=== PATIENT | male | born 1960 | race Caucasian/White ===

== ENCOUNTER 2016-12-04 20:13 | Emergency (ER) | payer OTHER ==
[~2016-12-04] VITALS: Ht 172.7 cm; Wt 115.2 kg
[~2016-12-04 20:13] MED LIST: CAPTOPRIL25 MG PO; METFORMIN HCL500 MG PO; PROVENTIL HFA6.7 GM INH
--- OUTSIDE RECORDS SUMMARY | 2016-12-04 21:50 | XMS ---
Demographics + + + | Address | [address] | | | [place] [address] | + + + | Preferred Language | Unknown | + + + | Marital Status | Unknown | + + + | Congregational Affiliation | Unknown | + + + | Race | Unknown | + + + | Ethnic Group | Unknown | + + + Author + + + | Author | [facility] | + + + | Organization | [facility] | + + + | Address | [address] | | | [place] [address] | + + + | Phone | | + + + Care Team Providers + + + + | Care Cigar Packer Name | Role | Phone | + + + + Unavailable | Unavailable | + + + + PROBLEMS + + + + + + + + | Type | Condition | ICD9-CM | [id number] | Onset | Condition | SNOMED | | | | Code | Code | Dates | Status | Code | + + + + + + + + | Problem | DM w/o | E11.9 | | | Active | [id number] | | | complicati | | | | | | | | on type II | | | | | | + + + + + + + + | Problem | Hypertensi | | I10 | | Active | [id number] | | | on | | | | | | + + + + + + + + | Assessment | URI (upper | | J06.9 | 23 August, | Active | [id number] | | | | | | 2016 | | | | | respirator | | | | | | | | y | | | | | | | | infection) | | | | | | + + + + + + + + ALLERGIES + + + + +---------+ | Substance | Reaction | Event Type | Date | Status | + + + + +---------+ | Tyler. | Unknown | Non Drug | August, | Unknown | | | | Allergy | | | + + + + +---------+ SOCIAL HISTORY No smoking Hx information available PLAN OF CARE VITAL SIGNS + + + + | Height | 67.75 in | 2016-08-23 | + + + + | Weight | 261.0 lbs | 2016-08-23 | + + + + | BMI | 39.97 kg/m2 | 2016-08-23 | + + + + | Temperature | 97.8 degrees Fahrenheit | 2016-08-23 | + + + + | Heart Rate | 88 /min | 2016-08-23 | + + + + | Blood pressure systolic | 163 mm Hg | 2016-08-23 | + + + + | Blood pressure diastolic | 95 mm Hg | 2016-08-23 | + + + + MEDICATIONS + + + + + + + +--------+ | Medicati | Instruct | Dosage | Frequenc | Start | End Date | Duration | Status | | on | ions | | y | Date | | | | + + + + + + + +--------+ | Albutero | Inhalati | 2 puffs | | | | 30 days | Active | | l | on every | | | | | | | | Sulfate | 6 hrs | | | | | | | | HFA 108 | PRN | | | | | | | | (90 | | | | | | | | | Base) | | | | | | | | | MCG/ACT | | | | | | | | + + + + + + + +--------+ | Metformi | Orally | 1 tab | 12h | 21 Michael, | | 30 days | Active | | n HCl | BID | | | 2013 | | | | | 500 mg | | | | | | | | + + + + + + + +--------+ | Captopri | Orally | 1 tablet | 12h | | | 30 days | Active | | l 25 MG | Twice a | | | | | | | | | day | | | | | | | + + + + + + + +--------+ | Vitamin | | as | | Sep, | | | Active | | D 1999 | | directed | | 2015 | | | | | UNIT | | | | | | | | + + + + + + + +--------+ RESULTS No Results PROCEDURES + + + + + | Procedure | Date Ordered | Related Diagnosis | Body Site | + + + + + | Est Level III | August 23, 2016 | | | | Intermediate | | | | + + + + + | DSCHRG MED/CURRENT | August 23, 2016 | | | | MED MERGE | | | | + + + + + | DOC MEDS VERIFIED | August 23, 2016 | | | | W/PT OR RE | | | | + + + + + IMMUNIZATIONS No Known Immunizations"
== END 2016-12-04 23:02 | disposition home or self-care (01) ==
LOC: ED 20:13
DX: R31.9 Hematuria, unspecified (principal); I10 Essential (primary) hypertension; E11.9 Type 2 diabetes mellitus without complications; Z87.891 Personal history of nicotine dependence; Z90.49 Acquired absence of other specified parts of digestive tract; Z88.5 Allergy status to narcotic agent; Z79.84 Long term (current) use of oral hypoglycemic drugs; Z79.899 Other long term (current) drug therapy
CPT/HCPCS: 74178; 80053; 81001; 85025; 85610; 85730; 99284; Q9967

== ENCOUNTER → 2019-02-20 | Day surgery (SDC) | payer BC ==
--- NOTE | 2019-02-20 08:27 | NUR ---
INTO [facility] REVIEWED CONSENT. OR NURSE SETTING UP FOR PROCEDURE. [id number] DR AG IN ROOM.
--- NOTE | 2019-02-20 10:33 | NUR ---
DR AG COMPLETED PROCEDURE SEE DICTATION. HAS INSTRUCTED PT. NO QUESTIONS. DCD AMB. PT STATES HES GOING TO WIFES OFFICE IN THIS BUILDING. DENIES ANY DIZZINESS PAIN OR ANYTHING FROM PROCEDURE.
--- NOTE | 2019-02-21 13:10 | OR ---
[facility] [address], [place] [address] Signed DATE OF OPERATION: 02/20/2019 SURGEON: Ute Ag MD PREOPERATIVE DIAGNOSES: 1. Known right lower pole parathyroid adenoma. 2. Multiple thyroid nodules including 11 mm right thyroid nodule. POSTOPERATIVE DIAGNOSES: 1. Known right lower pole parathyroid adenoma. 2. Multiple thyroid nodules including 11 mm right thyroid nodule. PROCEDURE: Ultrasound-guided fine-needle aspiration biopsy, right thyroid nodule. ANESTHESIA: 1% local (lidocaine). INDICATION: A 58-year-old white man with hypercalcemia and evaluation by Dr. Andino, his primary provider, confirming a right parathyroid adenoma. Plans were made for excision. An ultrasound was performed, which shows a likely lesion, but also shows thyroid nodules, both left and right side. There is at least 11 mm mid pole right thyroid nodule, for which, I have recommended fine-needle aspiration biopsy. Risks of bleeding, infection, and failure of diagnosis were reviewed with him. He understands and wished to proceed. FINDINGS: Ultrasound evaluation of the thyroid showed small nodules in the left lobe and in the right lobe. Dominant nodule in the right lobe was interrogated and under ultrasound guidance, fine-needle aspiration biopsy undertaken at three separate occasions. There were no complications. DESCRIPTION OF PROCEDURE: In the Day Surgery area, the patient was placed in a supine position with a pillow beneath the shoulders with head extension. Anterior neck was evaluated with ultrasound confirming the texture of the thyroid and evaluating surrounding structures. It did appear that an adenoma could be identified posterior to the right thyroid lobe corresponding to probable parathyroid adenoma. In the interpolar region on the right side was a nodule that was mixed in its consistency. The neck was then prepared with a chlorhexidine solution and draped sterilely. 1% lidocaine injected locally. Sterile Electronically Signed By: UTE AG MD 02/21/19 1310 PATIENT NAME: SOHA THOMAS OPERATIVE REPORT DATE OF : 64 REPORT #: [id number] PHYSICIAN: UTE AG MD PCP: AMIE ANDINO MD REPORT IS CONFIDENTIAL AND NOT TO BE RELEASED WITHOUT AUTHORIZATION [facility] [address], [place] [address] Signed sheet was placed over the probe and under ultrasonographic guidance, needle-guided to the nodule in question, multiple passes taken. Three separate occasions and three separate syringe systems were used with 3 separate containers. There was no untoward bleeding. Further evaluation showed no other sign of problem. A Band-Aid was applied. MD PAULA He/WEROL /[id number] cc: Dr. Andino Copies: ~ Electronically Signed By: UTE AG MD 02/21/19 1310 PATIENT NAME: SOHA THOMAS OPERATIVE REPORT DATE OF : 64 REPORT #: [id number] PHYSICIAN: UTE AG MD PCP: AMIE ANDINO MD REPORT IS CONFIDENTIAL AND NOT TO BE RELEASED WITHOUT AUTHORIZATION
== END | disposition home or self-care (01) ==
LOC: OPS 08:12 → DS 09:00
PROC: 0GBH3ZX Excision of Right Thyroid Gland Lobe, Percutaneous Approach, Diagnostic (ICD-10-PCS; principal; 2019-02-20)
PROC: BG44ZZZ Ultrasonography of Thyroid Gland (ICD-10-PCS; 2019-02-20)
DX: E04.2 Nontoxic multinodular goiter (principal); D35.1 Benign neoplasm of parathyroid gland; E66.01 Morbid (severe) obesity due to excess calories; E11.9 Type 2 diabetes mellitus without complications; I10 Essential (primary) hypertension; J45.909 Unspecified asthma, uncomplicated; F32.9 Major depressive disorder, single episode, unspecified; K21.9 Gastro-esophageal reflux disease without esophagitis; Z88.5 Allergy status to narcotic agent; Z68.38 Body mass index [BMI] 38.0-38.9, adult; Z87.891 Personal history of nicotine dependence
CPT/HCPCS: 10021

== ENCOUNTER 2019-09-16 16:15 | Emergency (ER) | payer BC ==
[~2019-09-16] VITALS: Ht 172.7 cm; Wt 115.7 kg
--- OUTSIDE RECORDS SUMMARY | ~2019-09-16 | XMS | Encounter Summary ---
Demographics + + + | Address | [address] | | | [place] [address] | + + + | Home Phone | | + + + | Preferred Language | Unknown | + + + | Marital Status | | + + + | Hoahaoism Affiliation | Unknown | + + + | Race | Unknown | + + + | Ethnic Group | Unknown | + + + Author + + + | Author | [facility] | | | and [place] | + + + | Organization | [facility] | | | and [place] | + + + | Address | Unknown | + + + | Phone | Unavailable | + + + Support + + +---------+ + | Name | Relationship | Address | Phone | + + +---------+ + | Latha Urban | ECON | Unknown | | + + +---------+ + Care Team Providers + +------+ + | Care Inspector And Tester Name | Role | Phone | + +------+ + | Renaldo Calzada MD | PCP | | + +------+ + Reason for Visit + + + | Reason | Comments | + + + | Follow-up | 6 week / zoom | + + + Encounter Details +--------+ + + + + | Date | Type | Department | Care Team | Description | +--------+ + + + + | 07/29/ | Virtual | [facility] | Esthela Zavala DO | Palpitations | | 2019 | Office | CARDIOLOGY PIA | [address] | (Primary Dx) | | | Visit | [address] | [place], [place] | | | | | [address] [place], [place] | [address] | | | | | [address] | | | | | | [phone] | | | +--------+ + + + + Social History + +-------+ +--------+------+ | Tobacco Use | Types | Packs/Day | Years | Date | | | | | Used | | + +-------+ +--------+------+ | Never Smoker | | | | | + +-------+ +--------+------+ + +---+---+---+ | Smokeless Tobacco: | | | | | Former User | | | | + +---+---+---+ + + +---------+ + | Alcohol Use | Drinks/Week | oz/Week | Comments | + + +---------+ + | Yes | | | JUST SOCIALLY | + + +---------+ + + + + | Sex Assigned at | Date Recorded | | | | + + + | Not on file | | + + + + + + + | Job Start Date | Occupation | Industry | + + + + | Not on file | Not on file | Not on file | + + + + + + + + | Travel History | Travel Start | Travel End | + + + + + + | No recent travel history available. | + + documented as of this encounter Last Filed Vital Signs + + + + + | Vital Sign | Reading | Time Taken | Comments | + + + + + | Blood Pressure | - | - | | + + + + + | Pulse | - | - | | + + + + + | Temperature | - | - | | + + + + + | Respiratory Rate | - | - | | + + + + + | Oxygen Saturation | - | - | | + + + + + | Inhaled Oxygen | - | - | | | Concentration | | | | + + + + + | Weight | 117.9 kg (260 lb) | 07/30/2019 10:52 AM | | | | | PDT | | + + + + + | Height | 172.7 cm (5' 8") | 07/30/2019 10:52 AM | | | | | PDT | | + + + + + | Body Mass Index | 39.53 | 07/30/2019 10:52 AM | | | | | PDT | | + + + + + documented in this encounter Progress Notes Esthela Zavala DO - 07/30/2019 11:40 AM PDT This exam was initially conducted via a secure 256-bit AES encrypted bidirectional video [employer]ong[employer]. Service was provided [id number] with the patient via interactive videoconferencing Video start time 11:50 Video end time 12:05 Total time (in minutes) including non [id number]-[id number] time (reviewing records, documentation, etc.) 15-24 minutes ([id number]) You have chosen to receive care through the use of telemedicine. Telemedicine enables [facility] care providers at different locations to provide safe, effective and convenient care throu gh the use of technology. As with any health care service, there are risks associated with t he use of telemedicine, including equipment failure, poor image resolution and information s ecurity issues. Do you understand the risks and benefits of telemedicine as I have explained them to you? " Yes" Have your questions regarding telemedicine been answered? "Yes" Patient is currently at home Do you consent to the use of telemedicine in your medical care today? Yes. Last question, I need to confirm where are you physically located right now? Answer: Patient confirms they are located in a state where IEsthela DO is licensed. No follow-ups on file. [facility] Cardiology Cardiology Follow Up Note Reason for Consultation: palpitations Requesting Physician: History Obtained From: patient HISTORY OF PRESENT ILLNESS: The patient is a 58-year-old male with a past medical history of hypertension and diabetes, who presents to the Cardiology office for initial consult regarding palpitations. 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 He reports that he has been having issues recently with his calcium numbers. Over the past few years, he reports that he has had spells of fluttering in his chest and in his stomach . This was followed by a pressure-like sensation in his head and face. His face will turn red whenever this occurs and he gets a tingly feeling over his head and upper extremities. It lasts about a minute and stops spontaneously. It used to occur every couple of months, b ut recently he has been noticing it at least once a week, last Sunday he had 5 episodes in 1 day, which is unusual for him. He has also been having issues with stomach pain and is sc heduled to have a CT scan tomorrow. He has not checked his blood pressure during one of the se episodes. He does not traditionally have a history of uncontrolled hypertension. A 24-h our urine metanephrine was done, which ruled out pheochromocytoma. After these events occur , he feels "wiped out." He denies any specific triggers. He denies any recent chest pains or shortness of breath. He denies any lower extremity swelling, orthopnea, PND. Interim History I last saw the patient on 06/18/2019. At that time, we ordered an ambulatory monitor, josephine serna he had done 07/02/2019. On the monitor, he was in normal sinus rhythm. There were 2 brie f episodes of SVT, which did not correlate with any symptoms. He did report episodes of pal pitations and unspecified symptom which correlated with normal sinus rhythm. Since we last saw each other, he continues to have episodes as described before. His parathyroid surgery had to be pushed back due to the COVID pandemic. He did have a CT scan of his abdomen, I kareem torres requested this from [facility]. He has no new complaints today. Review of Systems Constitutional: Negative for fatigue. HENT: Negative for nosebleeds. Eyes: Negative for visual disturbance. Respiratory: Negative for cough and shortness of breath. Cardiovascular: see HPI Gastrointestinal: Negative for nausea, vomiting, abdominal pain and blood in stool. Genitourinary: Negative for hematuria or dysuria. Musculoskeletal: Negative for myalgias, back pain and arthralgias. Skin: Negative for color change. Neurological: Negative for dizziness, syncope and numbness. Hematological: Does not bruise/bleed easily. Psychiatric/Behavioral: The patient is not nervous/anxious. PAST MEDICAL & SURGICAL HISTORY Past Medical History: Diagnosis Date Diabetes mellitus (HCC) Heart palpitations Hyperlipidemia Hypertension History reviewed. No pertinent surgical history. MEDICATIONS Home Medications Outpatient Encounter Medications as of 07/30/2019 Medication Sig Dispense Refill albuterol (PROVENTIL) 90 mcg/puff inhaler (ED prepack) allopurinol (ZYLOPRIM) 100 mg tablet Take 100 mg by mouth Daily. amLODIPine (NORVASC) 10 MG tablet Take 10 mg by mouth nightly. JANUVIA 100 MG tablet Take 100 mg by mouth Daily. lisinopril (PRINIVIL,ZESTRIL) 40 MG tablet Take 40 mg by mouth Daily. metFORMIN (GLUCOPHAGE) 1000 MG tablet Take 1,000 mg by mouth 2 times daily. No facility-administered encounter medications on file as of 07/30/2019. Allergies Allergies Allergen Reactions Morphine Other (See Comments) CAN'T TOLERATE IT. FAMILY HISTORY Family History Problem Relation Age of Onset Heart surgery Mother High cholesterol Mother Heart surgery Father High cholesterol Father SOCIAL HISTORY Social History Socioeconomic History Marital status: Spouse name: Not on file Number of children: Not on file Years of education: Not on file Highest education level: Not on file Occupational History Not on file Social Needs Financial resource strain: Not on file Food insecurity: Worry: Not on file Inability: Not on file Transportation needs: Medical: Not on file Non-medical: Not on file Tobacco Use Smoking status: Never Smoker Smokeless tobacco: Former User Substance and Sexual Activity Alcohol use: Yes Comment: JUST SOCIALLY Drug use: Never Sexual activity: Not on file Lifestyle Physical activity: Days per week: Not on file Minutes per session: Not on file Stress: Not on file Relationships Social connections: Talks on phone: Not on file Gets together: Not on file Attends advent service: Not on file Active member of club or organization: Not on file Attends meetings of clubs or organizations: Not on file Relationship status: Not on file Intimate partner violence: Fear of current or ex partner: Not on file Emotionally abused: Not on file Physically abused: Not on file Forced sexual activity: Not on file Other Topics Concern Not on file Social History Narrative Not on file PHYSICAL EXAM Vital Signs: Ht 1.727 m (5' 8") | Wt 117.9 kg (260 lb) | BMI 39.53 kg/m From 06/18/19 Physical Exam GENERAL: Well developed, well nourished, in no distress. Appears approximately stated age . HEENT: Normocephalic, atraumatic. EYES: PERRL, sclerae anicteric, no xanthelsasmas NECK: No JVD, lymphadenopathy, thyromegaly, bruits. Carotid pulses are 2+ bilaterally LUNGS: Clear bilaterally, with no rales, rhonchi or wheezing noted, respirations unlabored HEART: Nondisplaced PMI, regular rate and rhythm, S1, S2 normal. No murmurs, rubs or gall ops noted. ABDOMEN: Soft, nontender, no organomegaly, masses or bruits. Bowel sounds are normal in a ll 4 quadrants. EXTREMITIES: No edema. Radial pulses 2+ bilaterally. DP and PT pulses are 2+ bilaterally. SKIN: Warm and dry, capillary refill is normal, no lesions. NEUROLOGIC: Awake, alert and oriented x 3. No focal motor deficits. PSYCHIATRIC: Appropriate, affect appears normal DATA No results found for: WBC, HGB, HCT, PLTNo results found for: INR, PTT No results found for : NA, K, CL, CO2, BUN, CREA, GLUCOSE, MG, AST, ALT, DIGOXIN, BNP, TSHNo results found for: C HOL, TRIG, HDL, LDL, TSH EK06/18/2019 normal sinus rhythm 78 bpm, incomplete right bundle branch block. Last Echo: 05/27/18 CONCLUSIONS 1. Overall left ventricular systolic function is normal with an EF between 65 - 70 %. 2. There is mild concentric left ventricular hypertrophy. 3. The right ventricle is normal in size and function. 4. No significant valvular abnormali ties are noted. Last stress test: Last cath: Carotid US: AAA screening: Lower extremity US: OTHERS: 07/02/19 Procedure: Continuous ambulatory ECG for the duration of 12 days and 20 hours. During this recording, the underlying rhythm is sinus the lowest heart rate was 62 BPM, the highest hea rt rate 154 BPM, averaging 81 BPM. During this recording interval, there were 2 episodes of supraventricular tachycardia the longest and fastest of which was 6 beats at 163 bpm. Ther e were no episodes of ventricular tachycardia. No AV conduction abnormality observed. The h eart rate trends did demonstrate a normal circadian pattern. In the patient's diary, episod es of palpitations and unspecified symptom correlated with sinus rhythm. ASSESSMENT & PLAN 1. Palpitations 2. 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 HTN 4. DM II -Patient is a 58-year-old male who presents to the cardiology office for follow up regardin g palpitations. His palpitations are episodic and associated with facial flushing and turnin g red. He does not have a history of uncontrolled hypertension. Pheochromocytoma has been ruled out with a 24-hour urine metanephrine. He had a recent echocardiogram which demonstra al normal left ventricular function with mild concentric LVH, normal right ventricular func tion. He underwent a recent 2-week ambulatory monitor which was negative for any clinically significant arrhythmias. He did report some mild episodes during the monitoring. If sympt oms persist, would consider ambulatory referral to endocrinology to rule out other endocrine secreting tumors, specifically MEN syndromes. - Follow up with cardiology as needed. Thank you for allowing me to participate in the care of this patient. Primary Care Physician: MD Esthela Henley DO 07/30/2019 documented in this enco unter Plan of Treatment Not on filedocumented as of this encounter Visit Diagnoses + + | Diagnosis | + + | Palpitations - Primary | + + documented in this encounter
--- OUTSIDE RECORDS SUMMARY | ~2019-09-16 | XMS | Encounter Summary ---
Demographics + + + | Address | [address] | | | [place] [address] | + + + | Home Phone | | + + + | Preferred Language | Unknown | + + + | Marital Status | Unmarried Domestic Partner | + + + | Holiness Affiliation | Unknown | + + + | Race | White | + + + | Ethnic Group | Not or | + + + Author + + + | Author | [facility] | + + + | Organization | [facility] | + + + | Address | Unknown | + + + | Phone | Unavailable | + + + Support + + +---------+ + | Name | Relationship | Address | Phone | + + +---------+ + | Michael Preston | ECON | Unknown | | + + +---------+ + Care Team Providers + +------+ + | Care Managed Services Consultant Name | Role | Phone | + +------+ + PCP | Unavailable | + +------+ + Encounter Details +--------+ + + + + | Date | Type | Department | Care Team | Description | +--------+ + + + + | 07/29/ | Abstract | | Marie Raya, | | | 2019 | | Otolaryngology/Zeenat | [address] [facility] | | | | | [facility] | [facility] | | | | | [facility] [address] | [facility] [place] | | | | | [place] Mailcode: | [address] | | | | | [facility] | [phone] | | | | | and [address], | | | | | | [address] | | | | | | [place], [place] | | | | | | [address] | | | | | | [phone] | | | +--------+ + + + + Social History + +-------+ +--------+------+ | Tobacco Use | Types | Packs/Day | Years | Date | | | | | Used | | + +-------+ +--------+------+ | Never Assessed | | | | | + +-------+ +--------+------+ + + + | Sex Assigned at [...] + + documented as of this encounter Plan of Treatment Not on filedocumented as of this encounter Visit Diagnoses Not on filedocumented in this encounter"
--- OUTSIDE RECORDS SUMMARY | ~2019-09-16 | XMS | Clinical Summary ---
Demographics + + + | Address | [address] | | | [place] [address] | + + + | Home Phone | | + + + | Preferred Language | Unknown | + + + | Marital Status | | + + + | Yazdanism Affiliation | Unknown | + + + | Race | Unknown | + + + | Ethnic Group | Unknown | + + + Author + + + | Author | [facility] | | | and [place] | + + + | Organization | [facility] | | | and [place] | + + + | Address | Unknown | + + + | Phone | Unavailable | + + + Support + + +---------+ + | Name | Relationship | Address | Phone | + + +---------+ + | Latha Brockarlane | ECON | Unknown | | + + +---------+ + Care Team Providers + +------+ + | Care Solderer Assembler Name | Role | Phone | + +------+ + | Renaldo Calzada MD | PCP | | + +------+ + Allergies + + + + + + | Active Allergy | Reactions | Severity | Noted | Comments | | | | | Date | | + + + + + + | Morphine | Other (See Comments) | Medium | 06/18/19 | CAN'T TOLERATE IT. | | | | | 20 | | + + + + + + Medications + + + +---------+------+------+-------+ | Medication | Sig | Dispensed | Refills | Star | End | Statu | | | | | | t | Date | s | | | | | | Date | | | + + + +---------+------+------+-------+ | metFORMIN | Take 1,000 mg by | | 0 | 01/2 | | Activ | | (GLUCOPHAGE) 1000 MG | mouth 2 times daily. | | | 9/20 | | e | | tablet | | | | 20 | | | + + + +---------+------+------+-------+ | amLODIPine | Take 10 mg by mouth | | 0 | 01/2 | | Activ | | (NORVASC) 10 MG | nightly. | | | 9/20 | | e | | tablet | | | | 20 | | | + + + +---------+------+------+-------+ | lisinopril | Take 40 mg by mouth | | 0 | 01/2 | | Activ | | (PRINIVIL,ZESTRIL) | Daily. | | | 12/27 | | e | | 40 MG tablet | | | | 20 | | | + + + +---------+------+------+-------+ | albuterol | | | 0 | 11/0 | | Activ | | (PROVENTIL) 90 | | | | 8/20 | | e | | mcg/puff inhaler (ED | | | | 19 | | | | prepack) | | | | | | | + + + +---------+------+------+-------+ | allopurinol | Take 100 mg by mouth | | 0 | 03/2 | | Activ | | (ZYLOPRIM) 100 mg | Daily. | | | 3/20 | | e | | tablet | | | | 20 | | | + + + +---------+------+------+-------+ | JANUVIA 100 MG | Take 100 mg by mouth | | 0 | | | Activ | | tablet | Daily. | | | 08/26 | | e | | | | | | 20 | | | + + + +---------+------+------+-------+ Active Problems Not on file Encounters +--------+ + + + + | Date | Type | Specialty | Care Team | Description | +--------+ + + + + | 07/29/ | Virtual | Cardiology | Esthela Zavala DO | Palpitations | | 2019 | Office | | | (Primary Dx) | | | Visit | | | | +--------+ + + + + | 07/01/ | Procedure | Cardiology | Esthela Zavala DO | Heart palpitations | | 2019 | visit | | | | +--------+ + + + + | 07/01/ | Documentati | Cardiology | Jaki Wilson, | Other (end of study) | | 2019 | on | | Technologist | | +--------+ + + + + | 06/17/ | Office | Cardiology | Esthela Zavala DO | Heart palpitations | | 2019 | Visit | | | (Primary Dx) | +--------+ + + + + from Last 3 Months Family History + + +------+ + | Medical History | Relation | Name | Comments | + + +------+ + | Heart surgery | Father | | | + + +------+ + | High cholesterol | Father | | | + + +------+ + | Heart surgery | Mother | | | + + +------+ + | High cholesterol | Mother | | | + + +------+ + + +------+--------+ + | Relation | Name | Status | Comments | + +------+--------+ + | Father | | Alive | | + +------+--------+ + | Mother | | Alive | | + +------+--------+ + Social History + +-------+ +--------+------+ | [...] recent travel history available. | + + Last Filed Vital Signs + + + + + | Vital Sign | Reading | Time Taken | Comments | + + + + + | Blood Pressure | 130/72 | 06/18/2019 11:10 AM | | | | | PDT | | + + + + + | Pulse | 76 | 06/18/2019 11:10 AM | | | | | PDT | | + + + + + | Temperature | - | - | | + + + + + | Respiratory Rate | - | - | | + + + + + | Oxygen Saturation | 96% | 06/18/2019 11:10 AM | | | | | PDT [...] | | + + + + + Plan of Treatment + + + + + | Health Maintenance | Due Date | Last Done | Comments | + + + + + | Hepatitis C | | | | | Screening | 3 | | | + + + + + | Vaccine: | | | | | Dtap/Tdap/Td (1 - | 4 | | | | Tdap) | | | | + + + + + | Colorectal Cancer | | | | | Screening | 3 | | | | (Colonoscopy) | | | | + + + + + | Vaccine: Zoster (1 | | | | | of 2) | 3 | | | + + + + + | Vaccine: Influenza | | 01/07/2018 | | | (Season Ended) | 0 | | | + + + + + Procedures + +--------+ + + + | Procedure Name | Priori | Date/Time | Associated Diagnosis | Comments | | | ty | | | | + +--------+ + + + | IMAGING REPORT - | | 06/19/2019 | | Results for this | | EXTERNAL SCAN | | 12:00 AM | | procedure are in the | | | | PDT | | results section. | + +--------+ + + + | ECG 12 LEAD | Routin | 06/18/2019 | Heart palpitations | Results for this | | | e | 11:16 AM | | procedure are in the | | | | PDT | | results section. | + +--------+ + + + from Last 3 Months Results IMAGING REPORT - EXTERNAL SCAN (06/19/2019 12:00 AM PDT) + + + | Narrative | Performed At | + + + | Ordered by an | | | unspecified provider. | | + + + ECG 12 lead (06/18/2019 11:16 AM PDT) + + + + + + | Component | Value | Ref Range | Performed | Pathologist | | | | | At | Signature | + + + + + + | VENTRICULAR | 78 | BPM | [facility] | | | RATE EKG | | | | | + + + + + + | ATRIAL RATE | 78 | BPM | [facility] | | + + + + + + | P-R | 140 | ms | [facility] | | | INTERVAL | | | | | + + + + + + | QRS | 102 | ms | [facility] | | | DURATION | | | | | + + + + + + | Q-T | 344 | ms | [facility] | | | INTERVAL | | | | | + + + + + + | Q-T | 392 | ms | [facility] | | | INTERVAL | | | | | | (CORRECTED) | | | | | + + + + + + | P WAVE AXIS | 8 | degrees | [facility] | | + + + + + + | QRS AXIS | 24 | degrees | [facility] | | + + + + + + | T AXIS | 15 | degrees | [facility] | | + + + + + + | INTERPRETAT | Normal sinus | | [facility] | | | ION TEXT | rhythmIncomplete right | | | | | | bundle branch | | | | | | blockPossible Inferior | | | | | | infarct , age | | | | | | undeterminedAbnormal | | | | | | ECGNo previous ECGs | | | | | | availableConfirmed by | | | | | | ESTHELA ZAVALA MD ([id number]) | | | | | | on 06/23/2019 2:03:44 PM | | | | + + + + + + + + | Specimen | + + | | + + + + + | Narrative | Performed At | + + + | | | + + + + +---------+ + + | Performing | Address | City/State/Zipcode | Phone Number | | Organization | | | | + +---------+ + + | [facility] | | | | + +---------+ + + from Last 3 Months Insurance +-------+--------+ +--------+-------+---------+------+ | Payer | Benefi | Subscriber | Effect | Phone | Address | Type | | | t Plan | ID | juan | | | | | | / | | Dates | | | | | | Group | | | | | | +-------+--------+ +--------+-------+---------+------+ | BCBS | BCBS | [id number] | | | | PPO | | | OOS | 2 | 019-Pr | | | | | | PPO | | esent | | | | +-------+--------+ +--------+-------+---------+------+ + +--------+ +--------+ + + | Guarantor Name | Accoun | Relation to | Date | Phone | Billing Address | | | t Type | Patient | of | | | | | | | | | | + +--------+ +--------+ + + | Adriel Lewis | Person | Self [birth year] | [address] | | | al/Fam | | 1961 | [phone] | [place], [place] | | | [place] | | | [address] ([place]) | [address] | + +--------+ +--------+ + + Advance Directives + + + + + | Type | Date Recorded | Patient | Explanation | | | | Storekeeper Engineering | | + + + + + | Power of | | | | | Supervisor Backfilling | | | | + + + + + | Advance | | | | | Directive | | | | + + + + +
--- OUTSIDE RECORDS SUMMARY | ~2019-09-16 | XMS | Encounter Summary ---
Demographics + + + | Address | [address] | | | [place] [address] | + + + | Home Phone | | + + + | Preferred Language | Unknown | + + + | Marital Status | Unmarried Domestic Partner | + + + | Judaism Affiliation | Unknown | + + + | Race | White | + + + | Ethnic Group | Not or | + + + Author + + + | Author | [facility] [place] [facility] | + + + | Organization | [facility] | + + + | Address | Unknown | + + + | Phone | Unavailable | + + + Support + + +---------+ + | Name | Relationship | Address | Phone | + + +---------+ + | Michael Preston | ECON | Unknown | | + + +---------+ + Care Team Providers + +------+ + | Care Earth Sciences Professor Name | Role | Phone | + +------+ + | Renaldo Calzada MD | PCP | | + +------+ + Encounter Details +--------+ + + + + | Date | Type | Department | Care Team | Description | +--------+ + + + + | 10/23/ | Documentati | | Marie Raya, | | | 2019 | on | Otolaryngology/Zeenat | [address] [facility] | | | | | gology Services at | [facility] | | | | | [address] | [place], [place] | | | | | [place] Mailcode: | [phone] | | | | | [facility] | [phone] | | | | | and Healing, | | | | | | [address] | | | | | | [place], [place] | | | | | | [address] | | | | | | [phone] | | | +--------+ + + + [...]
--- OUTSIDE RECORDS SUMMARY | ~2019-09-16 | XMS | Encounter Summary ---
Demographics + + + | Address | [address] | | | [place] [address] | + + + | Home Phone | | + + + | Preferred Language | Unknown | + + + | Marital Status | Unmarried Domestic Partner | + + + | Presybeterian Affiliation | Unknown | + + + | Race | White | + + + | Ethnic Group | Not or | + + + Author + + + | Author | [facility] [place] [facility] | + + + | Organization | [facility] | + + + | Address | Unknown | + + + | Phone | Unavailable | + + + Support + + +---------+ + | Name | Relationship | Address | Phone | + + +---------+ + | Michael Preston | ECON | Unknown | | + + +---------+ + Care Team Providers + +------+ + | Care Bench Repair Technician Name | Role | Phone | + +------+ + PCP | Unavailable | + +------+ + Encounter Details +--------+ + + + + | Date | Type | Department | Care Team | Description | +--------+ + + + + | 07/29/ | Abstract | | Marie Raya, | | | 2019 | | Otolaryngology/Zeenat | [address] [facility] | | | | | [facility] | [facility] | | | | | [address] | [facility] [place] | | | | | [place] Mailcode: | [address] | | | | | [facility] | [phone] | | | | | and [address], | | | | | | [address] | | | | | | [place], [place] | | | | | | [address] | | | | | | [phone] | | | +--------+ + + + [...]
--- OUTSIDE RECORDS SUMMARY | ~2019-09-16 | XMS | Clinical Summary ---
Demographics + + + | Address | [address] | | | [place] [address] | + + + | Home Phone [...] Author + + + | Author | NON REVENUE LOCATIONS | + + + | Organization | NON REVENUE LOCATIONS | + + + | Address | Unknown | + + + | Phone | Unavailable | + + + Support + + +---------+ + | Name | Relationship | Address | Phone | + + +---------+ + | Michael Preston | ECON | Unknown | | + + +---------+ + Care Team Providers + +------+ + | Care Teletypesetter Monitor Name | Role | Phone | + +------+ + | Renaldo Calzada MD | PCP | | + +------+ + Source Comments GUERRERO is fully live on both [facility] and [facility] InPatient.[facility] Allergies Not on File Medications Not on file Active Problems Not on file Social History + +-------+ +--------+------+ | Tobacco [...] | + + Last Filed Vital Signs Not on file Plan of Treatment + + + + + | Health Maintenance | Due Date | Last Done | Comments | + + + + + | Influenza (Flu) | | | | | vaccination (#1) | 9 | | | + + + + + | Pneumococcal | Aged Out | | No longer eligible | | vaccination | | | based on patient's | | | | | age to complete this | | | | | topic | + + + + + Results Not on filefrom Last 3 Months Insurance +-------+--------+ +--------+ + +------+ | Payer | Benefi | Subscriber | Effect | Phone | Address | Type | | | t Plan | ID | juan | | | | | | / | | Dates | | | | | | Group | | | | | | +-------+--------+ +--------+ + +------+ | MODA | MODA | [phone] | 06/08/19 | [phone] | [address] | PPO | | | [place] | | [address] | [id number] | | | | [place] | | sent | | [place], | | | | | | | | [place] [address] | | +-------+--------+ +--------+ + +------+ + +--------+ +--------+ + + | Guarantor Name | Accoun | Relation to | Date | Phone | Billing Address | | | t Type | Patient | of | | | | | | | | | | + +--------+ +--------+ + + | Adriel Lewis | Person | Self | [birth year] | [address] | | | al/Fam | | 1961 | [phone] | [place] [address] | | | [place] | | | 5 (Home) | | + +--------+ +--------+ + +"
--- OUTSIDE RECORDS SUMMARY | ~2019-09-16 | XMS | Encounter Summary ---
Demographics + + + | Address | [address] | | | [place] [address] | + + + | Home Phone | | + + + | Preferred Language | Unknown | + + + | Marital Status | Unmarried Domestic Partner | + + + | Shinto Affiliation | Unknown | + + + | Race | White | + + + | Ethnic Group | Not or | + + + Author + + + | Author | [place] [facility] | + + + | Organization | [facility] | + + + | Address | Unknown | + + + | Phone | Unavailable | + + + Support + + +---------+ + | Name | Relationship | Address | Phone | + + +---------+ + | Michael Preston | ECON | Unknown | | + + +---------+ + Care Team Providers + +------+ + | Care Carpet Installer Name | Role | Phone | + +------+ + | Renaldo Calzada MD | PCP | | + +------+ + Encounter Details +--------+ + + + + | Date | Type | Department | Care Team | Description | +--------+ + + + + | 10/23/ | Documentati | | Marie Raya, | | | 2019 | on | Otolaryngology/Zeenat | [address] [facility] | | | | | gology Services at | [facility] | | | | | [address] | [place], [place] | | | | | [place] Mailcode: | [phone] | | | | | [facility] | [phone] | | | | | and Healing, | | | | | | [address] | | | | | | [place], [place] | | | | | | [address] | | | | | | [phone] | | | +--------+ + + + [...]
--- OUTSIDE RECORDS SUMMARY | ~2019-09-16 | XMS | Encounter Summary ---
Demographics + + + | Address | [address] | | | [place] [address] | + + + | Home Phone | | + + + | Preferred Language | Unknown | + + + | Marital Status | | + + + | Islam Affiliation | Unknown | + + + | Race | Unknown | + + + | Ethnic Group | Unknown | + + + Author + + + | Author | [facility] | | | and [place] | + + + | Organization | [facility] | | | [...] Team Providers + +------+ + | Care Lobsterman Name | Role | Phone | + +------+ + | Renaldo Calzada MD | PCP | | + +------+ + Reason for Visit + + + | Reason | Comments | + + + | New Patient | new patient | + + + Evaluate & Treat (Routine) +--------+--------+ + + + + | Status | Reason | Specialty | Diagnoses / | Referred By | Referred To | | | | | Procedures | Contact | Contact | +--------+--------+ + + + + | Closed | | Cardiology | Diagnoses | Zheng, | Sally, | | | | | | Renaldo Lopez MD | DO Esthela | | | | | Palpitations | [address] | [address] | | | | | Procedures | [address] | [address] [place] | | | | | CONSULT | [place], | [place], [place] | | | | | | [place] [address] | [address] Phone: | | | | | | Phone: | [phone] | | | | | | [phone] | Fax: | | | | | | Fax: | [phone] | | | | | | [phone] | | +--------+--------+ + + + + Encounter Details +--------+---------+ + + + | Date | Type | Department | Care Team | Description | +--------+---------+ + + + | 03/11/ | Office | [facility] | Esthela Zavala DO | Heart palpitations | | 2020 | Visit | [facility] | [address] | (Primary Dx) | | | | [address] | [place], [place] | | | | | [address] [place] | [address] | | | | | [address] | | | | | | [phone] | | | +--------+---------+ + + + Social History + +-------+ [...] Weight | 117.9 kg (260 lb) | 06/18/2019 11:10 AM | | | | | PDT | | + + + + + | Height | 172.7 cm (5' 8") | 06/18/2019 11:10 AM | | | | | PDT | | + + + + + | Body Mass Index | 39.53 | 06/18/2019 11:10 AM | | | | | PDT | | + + + + + documented in this encounter Progress Notes Esthela Zavala DO - 06/18/2019 11:[address] [facility] Cardiology Cardiology Consult Note Reason for Consultation: palpitations Requesting Physician: Renaldo Calzada V History Obtained From: patient HISTORY OF PRESENT [...] denies any lower extremity swelling, orthopnea, PND. Review of Systems Constitutional: Negative for fatigue. [...] Home Medications Outpatient Encounter Medications as of 06/18/2019 Medication Sig Dispense Refill albuterol (PROVENTIL) 90 mcg/puff inhaler (ED prepack) amLODIPine (NORVASC) 10 MG tablet Take 10 mg by mouth nightly. lisinopril (PRINIVIL,ZESTRIL) 40 MG tablet Take 40 mg by mouth Daily. metFORMIN (GLUCOPHAGE) 1000 MG tablet Take 1,000 mg by mouth 2 times daily. No facility-administered encounter medications on file as of 06/18/2019. Allergies Allergies Allergen Reactions Morphine Other (See [...] file Gets together: Not on file Attends yarsani service: Not on file Active member of [...] Not on file PHYSICAL EXAM Vital Signs: BP 130/72 | Pulse 76 | Ht 1.727 m (5' 8") | Wt 117.9 kg (260 lb) | SpO2 96 % | BMI 39.53 kg/m Physical Exam GENERAL: Well developed, well nourished, [...] US: AAA screening: Lower extremity US: OTHERS: ASSESSMENT & PLAN 1. Palpitations 2. 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 HTN 4. DM II -Patient is a 58-year-old male who presents to the cardiology office for initial consultati on regarding palpitations. His palpitations are episodic and associated with facial flushing and turning red. He does not have a history of uncontrolled hypertension. Pheochromocytom a has been ruled out with a 24-hour urine metanephrine. He had a recent echocardiogram whic h demonstrated normal left ventricular function with mild concentric LVH, normal right ventr icular function. - Will plan to obtain a 2 week event monitor to correlate symptoms with heart rhythm - Follow up in 6 weeks Thank you for allowing me to participate in the care of this patient. Primary Care Physician: MD Esthela Henley DO 06/20/2019 documented in this enco unter Plan of Treatment + +------+--------+ + + | Name | Type | Priori | Associated Diagnoses | Order Schedule | | | | ty | | | + +------+--------+ + + | Event monitor - 2 | ECG | Routin | Heart palpitations | Expected: | | week | | e | | 06/25/2019, Expires: | | | | | | 06/17/2020 | + +------+--------+ + + documented as of this encounter Procedures + +--------+ + + + | [...] section. | + +--------+ + + + documented in this encounter Results ECG 12 lead (06/18/2019 11:16 AM PDT) [...] | | | + +---------+ + + documented in this encounter Visit Diagnoses + + | Diagnosis | + + | Heart palpitations - Primary Palpitations | + + documented in this encounter
--- OUTSIDE RECORDS SUMMARY | ~2019-09-16 | XMS | Clinical Summary ---
Demographics + + + | Address | [address] | | | [place] [address] | + + + | Home Phone | | + + + | Preferred Language | Unknown | + + + | Marital Status | Unmarried Domestic Partner | + + + | Quaker Affiliation | Unknown | + + + [...] Team Providers + +------+ + | Care Glue Cook Name | Role | Phone | + +------+ + | Renaldo Calzada MD | PCP | | + +------+ + Source Comments GUERRERO is fully live on both [facility] Amb[facility] and [facility] InPatient.[facility] Allergies Not on File Medications Not on [...] | MODA | [phone] | 06/08/19 | [phone] | [address] | PPO | | | [place] | | [address] | [address] | [id number] | | | | [place] | | sent | | [place], | | | | | | | | [place] [address] | | +-------+--------+ +--------+ + +------+ + [...] | 1961 | [phone] | [place] [address] | | | [place] | | | 5 (Home) | | + +--------+ +--------+ + +"
--- OUTSIDE RECORDS SUMMARY | ~2019-09-16 | XMS | Encounter Summary ---
Demographics + + + | Address | [address] | | | [place] [address] | + + + | Home Phone | | + + + | Preferred Language | Unknown | + + + | Marital Status | | + + + | Hindu Affiliation | Unknown | + + + | Race | Unknown | + + + | Ethnic Group | Unknown | + + + Author + + + | Author | [facility] | | | and [place] | + + + | Organization | [facility] | | | [...] Team Providers + +------+ + | Care Meat Wrapper Name | Role | Phone | + [...] | | | CONSULT | [place], | [place], [place] | | | | | | [place] [address] | [address] Phone: | | | | | | Phone: | [phone] | | | | | | [phone] | Fax: | | | | | | Fax: | [phone] | | | | | | [phone] | | +--------+--------+ + + + + Encounter Details +--------+---------+ + + + | Date | Type | Department | Care Team | Description | +--------+---------+ + + + | 03/11/ | Office | [facility] | Esthela Zavala DO | Heart palpitations | | 2020 | Visit | [facility] | [address] | (Primary Dx) | | | | [address] | [place], [place] | | | | | [address] [place] [address] | [address] | | | | | [address] | | | | | | [phone] | | | +--------+---------+ + + + [...] Zavala DO - 06/18/2019 11:20 AM PDT [facility] Cardiology Cardiology Consult Note Reason for [...] file Gets together: Not on file Attends mandaeism service: Not on file Active member of [...]
--- OUTSIDE RECORDS SUMMARY | ~2019-09-16 | XMS | Encounter Summary ---
Demographics + + + | Address | [address] | | | [place] [address] | + + + | Home Phone | | + + + | Preferred Language | Unknown | + + + | Marital Status | | + + + | Muslim Affiliation | Unknown | + + + | Race | Unknown | + + + | Ethnic Group | Unknown | + + + Author + + + | Author | [facility] | | | and [place] | + + + | Organization | [facility] | | | [...] Team Providers + +------+ + | Care Insecticide Sprayer Name | Role | Phone | + +------+ + PCP | Unavailable | + +------+ + Encounter Details +--------+ + + + + | Date | Type | Department | Care Team | Description | +--------+ + + + + | 05/27/ | Orders Only | [facility] | Renaldo Calzada V, | | | 2019 | | CONVERSION 888 | [address] | | | | | [place] | [place] | | | | | [facility] [place] | [address] | | | | | [address] | | | | | | [phone] | | | +--------+ + + + [...] Not on filedocumented as of this encounter Procedures + +--------+ + + + | Procedure Name | Priori | Date/Time | Associated Diagnosis | Comments | | | ty | | | | + +--------+ + + + | ECHO INTERPRETATION | Routin | 05/27/2018 | | Results for this | | OF OUTSIDE FILMS | e | 5:51 PM | | procedure are in the | | | | PST | | results section. | + +--------+ + + + documented in this encounter Results ECHO Interpretation of Outside Films (05/27/2018 5:51 PM PST) + + | Specimen | + + | | + + + + + | Impressions | Performed At | + + + | 1. Overall left ventricular systolic function is normal with an EF | | | between 65 - 70 %. 2. There is mild concentric left ventricular | | | hypertrophy. 3. The right ventricle is normal in size and function. | | | 4. No significant valvular abnormalities are noted. | | + + + + + + | Narrative | Performed At | + + + | Patient Name: Adriel Lewis Date of : 1960 | | | Performing Physician: BENJAMIN GARCIA MD | | | | | | INDICATIONS HTN, Angina CONCLUSIONS 1. | | | Overall left ventricular systolic function is normal with an EF | | | between 65 - 70 %. 2. There is mild concentric left ventricular | | | hypertrophy. 3. The right ventricle is normal in size and function. | | | 4. No significant valvular abnormalities are noted. FINDINGS | | | -------- ECG rhythm: Sinus rhythm. Study: A 2-dimensional | | | transthoracic echocardiogram with m-mode, spectral and color flow | | | Doppler was perfomed at [facility]. Study: This was a technically adequate | | | study. Left Ventricle: Overall left ventricular systolic function is | | | normal with an EF between 65 - 70 %. Left Ventricle: The left | | | ventricle cavity size is normal. Left Ventricle: There is mild | | | concentric left ventricular hypertrophy. Left Ventricle: No regional | | | wall motion abnormalities. Left Ventricle: The diastolic filling | | | pattern is normal for the age of the patient. Right Ventricle: The | | | right ventricle is normal in size and function. Left Atrium: The left | | | atrium is normal in size. Right Atrium: The right atrium is normal | | | in size. Aortic Valve: The aortic valve appears to be trileaflet. | | | Aortic Valve: There is no evidence of aortic regurgitation. Aortic | | | Valve: There is no evidence of aortic stenosis. Mitral Valve: The | | | mitral valve is normal. Mitral Valve: There is trace mitral | | | regurgitation. Mitral Valve: No evidence of MVP. Tricuspid Valve: | | | The tricuspid valve appears structurally normal. Tricuspid Valve: | | | Trace tricuspid regurgitation present. Tricuspid Valve: There is no | | | evidence of pulmonary hypertension. Tricuspid Valve: The right | | | ventricular systolic pressure (pulmonary artery systolic pressure), as | | | measured by Doppler, is 21.17mmHg. Tricuspid Valve: The poor TR | | | signal prevents accurate estimation of pulmonary pressures. Pulmonic | | | Valve: The pulmonic valve is normal. Pulmonic Valve: Trace pulmonic | | | regurgitation. Pericardium: There is no pericardial effusion. | | | IVC/Hepatic Veins: The IVC is normal size (1.5-2.5cm) and collapses | | | >50% with sniff, consistent with central venous pressures of 5-10mmHg. | | | Aorta: The aortic root, ascending aorta and aortic arch are normal. | | | Mass: No mass visualized Thrombus: No clot visualized Thrombus: No | | | vegetation visualized. Septum: No ASD observed. Septum: No VSD | | | observed. MEASUREMENTS Ao asc: 3.51 cm Ao | | | Diam: 3.13 cm Ao sinus: 3.[address] junct: 2.90 cm IVC: | | | 22.29 mm LA Major: 4.82 cm EDV(Teich): 105.95 ml IVSd: | | | 1.18 cm LVIDd: 4.76 cm LVPWd: 1.19 cm LVOT Diam: 2.30 cm | | | %FS: 37.13 % EF(Teich): 67.00 % ESV(Teich): 34.95 ml | | | LVIDs: 2.99 cm SV(Teich): 70.99 ml RV Major: 7.74 cm RV | | | Minor: 3.45 cm RVIDd: 2.85 cm LVEF MOD A2C: 66.90 % SV MOD | | | A2C: 47.76 ml LVEF MOD A4C: 65.36 % SV MOD A4C: 77.15 ml | | | EF Biplane: 65.97 % LVEDV MOD BP: 96.25 ml LVESV MOD BP: | | | 32.74 ml LVEDV MOD A2C: 71.38 ml LVLd A2C: 8.54 cm LVEDV MOD | | | A4C: 118.03 ml LVLd A4C: 7.73 cm LVESV MOD A2C: 23.62 ml | | | LVLs A2C: 7.23 cm LVESV MOD A4C: 40.88 ml LVLs A4C: 6.45 cm | | | LAESV(A-L): 50.49 ml LAESV Index (A-L): 22.44 ml/m2 LAAs | | | A2C: 17.45 cm2 LAESV A-L A2C: 48.14 ml LAESV MOD A2C: 47.91 | | | ml LALs A2C: 5.37 cm LAAs A4C: 17.93 cm2 LAESV A-L A4C: | | | 51.89 ml LAESV MOD A4C: 49.54 ml LALs A4C: 5.26 cm RAAs: | | | 14.68 cm2 RAESV A-L: 40.32 ml RAESV MOD: 39.64 ml RALs: | | | 4.53 cm TAPSE: 2.10 cm AV Env.Ti: 231.76 ms AV maxP.89 | | | mmHg AV meanP.40 mmHg AV Vmax: 1.21 m/s AV Vmean: | | | 0.88 m/s AV VTI: 20.42 cm ANTONIO Vmax: 3.96 cm2 ANTONIO (VTI): | | | 4.48 cm2 AVAI Vmax: 0.00 cm2/m2 AVAI (VTI): 0.00 cm2/m2 LVOT | | | Env.Ti: 248.72 ms LVOT maxP.35 mmHg LVOT meanP.43 | | | mmHg LVSI Dopp: 40.73 ml/m2 LVSV Dopp: 91.66 ml LVOT Vmax: | | | 1.15 m/s LVOT Vmean: 0.88 m/s LVOT VTI: 22.03 cm MV A Abdiel: | | | 0.63 m/s MV Dec Lanier: 2.36 m/s2 MV DecT: 288.62 ms MV E | | | Abdiel: 0.68 m/s MV E/A Ratio: 1.06 E/E' Sept: 9.14 E' Lat: | | | 0.10 m/s E' Sept: 0.07 m/s RAP: 5 mmHg RVSP: 21.17 mmHg | | | TR maxP.17 mmHg TR Vmax: 2.01 m/s Brick Tester: | | | Authenticated by: BENJAMIN GARCIA MD Report Date/Time: -- | | | [id number] | | + + + + + | Procedure Note | + + | Salazar Muniz Conversion - 11/28/2018 2:01 PM PDT Patient Name: Matias Lewis | | : 1960 Performing Physician: BENJAMIN GARCIA, | | INDICATIONS H | | [place], Angina CONCLUSIONS 1. Overall left ventricular systolic function is normal | | with an EF between 65 - 70 %.2. There is mild concentric left ventricular | | hypertrophy.3. The right ventricle is normal in size and function. 4. No significant | | valvular abnormalities are noted. FINDINGS--------ECG rhythm: Sinus rhythm.Study: A | | 2-dimensional transthoracic echocardiogram with m-mode, spectral and color flow Doppler | | was perfomed at [facility].Study: This was a technically adequate study.Left Ventricle: Overall | | left ventricular systolic function is normal with an EF between 65 - 70 %.Left | | Ventricle: The left ventricle cavity size is normal.Left Ventricle: There is mild | | concentric left ventricular hypertrophy.Left Ventricle: No regional wall motion | | abnormalities.Left Ventricle: The diastolic filling pattern is normal for the age of the | | patient.Right Ventricle: The right ventricle is normal in size and function.Left | | Atrium: The left atrium is normal in size.Right Atrium: The right atrium is normal in | | size.Aortic Valve: The aortic valve appears to be trileaflet.Aortic Valve: There is no | | evidence of aortic regurgitation.Aortic Valve: There is no evidence of aortic | | stenosis.Mitral Valve: The mitral valve is normal.Mitral Valve: There is trace mitral | | regurgitation.Mitral Valve: No evidence of MVP.Tricuspid Valve: The tricuspid valve | | appears structurally normal.Tricuspid Valve: Trace tricuspid regurgitation | | present.Tricuspid Valve: There is no evidence of pulmonary hypertension.Tricuspid Valve: | | The right ventricular systolic pressure (pulmonary artery systolic pressure), as | | measured by Doppler, is 21.17mmHg.Tricuspid Valve: The poor TR signal prevents accurate | | estimation of pulmonary pressures.Pulmonic Valve: The pulmonic valve is normal.Pulmonic | | Valve: Trace pulmonic regurgitation.Pericardium: There is no pericardial | | effusion.IVC/Hepatic Veins: The IVC is normal size (1.5-2.5cm) and collapses >50% with | | sniff, consistent with central venous pressures of 5-10mmHg.Aorta: The aortic root, | | ascending aorta and aortic arch are normal.Mass: No mass visualizedThrombus: No clot | | visualizedThrombus: No vegetation visualized.Septum: No ASD observed.Septum: No VSD | | observed. MEASUREMENTS Ao asc: 3.51 cmAo Diam: 3.13 cmAo sinus: 3.03 | | cmAo st junct: 2.90 cmIVC: 22.29 mmLA Major: 4.82 cmEDV(Teich): 105.95 mlIVSd: | | 1.18 cmLVIDd: 4.76 cmLVPWd: 1.19 cmLVOT Diam: 2.30 cm%FS: 37.13 %EF(Teich): | | 67.00 %ESV(Teich): 34.95 mlLVIDs: 2.99 cmSV(Teich): 70.99 mlRV Major: 7.74 cmRV | | Minor: 3.45 cmRVIDd: 2.85 cmLVEF MOD A2C: 66.90 %SV MOD A2C: 47.76 mlLVEF MOD | | A4C: 65.36 %SV MOD A4C: 77.15 mlEF Biplane: 65.97 %LVEDV MOD BP: 96.25 mlLVESV | | MOD BP: 32.74 mlLVEDV MOD A2C: 71.38 mlLVLd A2C: 8.54 cmLVEDV MOD A4C: 118.03 | | mlLVLd A4C: 7.73 cmLVESV MOD A2C: 23.62 mlLVLs A2C: 7.23 cmLVESV MOD A4C: 40.88 | | mlLVLs A4C: 6.45 cmLAESV(A-L): 50.49 mlLAESV Index (A-L): 22.44 ml/m2LAAs A2C: | | 17.45 [id number] A-L A2C: 48.14 mlLAESV MOD A2C: 47.91 mlLALs A2C: 5.37 cmLAAs A4C: | | 17.93 [id number] A-L A4C: 51.89 mlLAESV MOD A4C: 49.54 mlLALs A4C: 5.26 cmRAAs: | | 14.68 [id number] A-L: 40.32 mlRAESV MOD: 39.64 mlRALs: 4.53 cmTAPSE: 2.10 cmAV | | Env.Ti: 231.76 msAV maxP.89 mmHgAV meanP.40 mmHgAV Vmax: 1.21 m/Margarita | | Vmean: 0.88 m/Margarita VTI: 20.42 cmAVA Vmax: 3.96 cm2AVA (VTI): 4.48 [id number] Vmax: | | 0.00 cm2/m2AVAI (VTI): 0.00 cm2/m2LVOT Env.Ti: 248.72 msLVOT maxP.35 mmHgLVOT | | meanP.43 mmHgLVSI Dopp: 40.73 ml/m2LVSV Dopp: 91.66 mlLVOT Vmax: 1.15 | | m/sLVOT Vmean: 0.88 m/sLVOT VTI: 22.03 cmMV A Abdiel: 0.63 m/sMV Dec Lanier: 2.36 | | m/s2MV DecT: 288.62 msMV E Abdiel: 0.68 m/sMV E/A Ratio: 1.06E/E' Sept: 9.14E' Lat: | | 0.10 m/sE' Sept: 0.07 m/sRAP: 5 mmHgRVSP: 21.17 mmHgTR maxP.17 mmHgTR | | Vmax: 2.01 m/s Brick Tester:Authenticated by: BENJAMIN JOSE, MDReport Date/Time: -- | | [id number]:20 IMPRESSION: 1. Overall left ventricular systolic function is | | normal with an EF between 65 - 70 %.2. There is mild concentric left ventricular | | hypertrophy.3. The right ventricle is normal in size and function. 4. No significant | | valvular abnormalities are noted. | |MEASUREMENTS | | | |Ao asc: 3.51 cm | |Ao Diam: 3.13 cm | |Ao sinus: 3.03 cm | |Ao st junct: 2.90 cm | |IVC: 22.29 mm | |LA Major: 4.82 cm | |EDV(Teich): 105.95 ml | |IVSd: 1.18 cm | |LVIDd: 4.76 cm | |LVPWd: 1.19 cm | |LVOT Diam: 2.30 cm | |%FS: 37.13 % | |EF(Teich): 67.00 % | |ESV(Teich): 34.95 ml | |LVIDs: 2.99 cm | |SV(Teich): 70.99 ml | |RV Major: 7.74 cm | |RV Minor: 3.45 cm | |RVIDd: 2.85 cm | |LVEF MOD A2C: 66.90 % | |SV MOD A2C: 47.76 ml | |LVEF MOD A4C: 65.36 % | |SV MOD A4C: 77.15 ml | |EF Biplane: 65.97 % | |LVEDV MOD BP: 96.25 ml | |LVESV MOD BP: 32.74 ml | |LVEDV MOD A2C: 71.38 ml | |LVLd A2C: 8.54 cm | |LVEDV MOD A4C: 118.03 ml | |LVLd A4C: 7.73 cm | |LVESV MOD A2C: 23.62 ml | |LVLs A2C: 7.23 cm | |LVESV MOD A4C: 40.88 ml | |LVLs A4C: 6.45 cm | |LAESV(A-L): 50.49 ml | |LAESV Index (A-L): 22.44 ml/m2 | |LAAs A2C: 17.45 cm2 | |LAESV A-L A2C: 48.14 ml | |LAESV MOD A2C: 47.91 ml | |LALs A2C: 5.37 cm | |LAAs A4C: 17.93 cm2 | |LAESV A-L A4C: 51.89 ml | |LAESV MOD A4C: 49.54 ml | |LALs A4C: 5.26 cm | |RAAs: 14.68 cm2 | |RAESV A-L: 40.32 ml | |RAESV MOD: 39.64 ml | |RALs: 4.53 cm | |TAPSE: 2.10 cm | |AV Env.Ti: 231.76 ms | |AV maxP.89 mmHg | |AV meanP.40 mmHg | |AV Vmax: 1.21 m/s | |AV Vmean: 0.88 m/s | |AV VTI: 20.42 cm | |ANTONIO Vmax: 3.96 cm2 | |ANTONIO (VTI): 4.48 cm2 | |AVAI Vmax: 0.00 cm2/m2 | |AVAI (VTI): 0.00 cm2/m2 | |LVOT Env.Ti: 248.72 ms | |LVOT maxP.35 mmHg | |LVOT meanP.43 mmHg | |LVSI Dopp: 40.73 ml/m2 | |LVSV Dopp: 91.66 ml | |LVOT Vmax: 1.15 m/s | |LVOT Vmean: 0.88 m/s | |LVOT VTI: 22.03 cm | |MV A Abdiel: 0.63 m/s | |MV Dec Lanier: 2.36 m/s2 | |MV DecT: 288.62 ms | |MV E Abdiel: 0.68 m/s | |MV E/A Ratio: 1.06 | |E/E' Sept: 9.14 | |E' Lat: 0.10 m/s | |E' Sept: 0.07 m/s | |RAP: 5 mmHg | |RVSP: 21.17 mmHg | |TR maxP.17 mmHg | |TR Vmax: 2.01 m/s | | | |Brick Tester: | |Authenticated by: BENJAMIN GARCIA MD | |Report Date/Time: -- [id number]:20 | | | |IMPRESSION: | |1. Overall left ventricular systolic function is normal with an EF between 65 - 70 %. | |2. There is mild concentric left ventricular hypertrophy. | |3. The right ventricle is normal in size and function. 4. No significant valvular abnormali ties are noted. | + + documented in this encounter Visit Diagnoses Not on filedocumented in this encounter"
--- OUTSIDE RECORDS SUMMARY | ~2019-09-16 | XMS | Encounter Summary ---
Demographics + + + | Address | [address] | | | [place] [address] | + + + | Home Phone | | + + + | Preferred Language | Unknown | + + + | Marital Status | | + + + | Christian Affiliation | Unknown | + + + | Race | Unknown | + + + | Ethnic Group | Unknown | + + + Author + + + | Author | [facility] | | | and [place] | + + + | Organization | [facility] | | | and [...] Team Providers + +------+ + | Care Manager Regional Sales Name | Role | Phone | + +------+ + | Renaldo Calzada MD | PCP | | + +------+ + Reason for Visit +--------+ + | Reason | Comments | +--------+ + | Other | end of study | +--------+ + Encounter Details +--------+ + + + + | Date | Type | Department | Care Team | Description | +--------+ + + + + | 07/01/ | Documentati | [facility] | Jaki Wilson, | Other (end of study) | | 2019 | on | CARDIOLOGY JUNIOR | Technologist | | | | | [address] | | | | | | [place] | | | | | | [address] | | | | | | [phone] | | | +--------+ + + + [...] + + documented as of this encounter Progress Notes Jaik Wilson, Technologist - 07/02/2019 11:59 PM PDT Cardiac Event Monitor Date of Event Monitor: 07/02/19 Referring Physician: Sherice Patient:Adriel Lewis : 1960 Age: 58 y.o. male INDICATIONS: Palpitations Procedure: Continuous ambulatory ECG for the duration [...] and unspecified symptom correlated with sinus rhythm. Impressions: 1: Sinus rhythm as described above. 2: No clinically significant arrhythmias detected. 3: No AV conduction abnormality detected. 4: Episodes of palpitations and unspecified symptom correlated with sinus rhythm. Recomendations: Clinical correlation suggested. Esthela Zavala DO documented in this enco unter Plan of Treatment Not on filedocumented as of this encounter Visit Diagnoses + + | Diagnosis | + + | Palpitations | + + documented in this encounter"
--- OUTSIDE RECORDS SUMMARY | ~2019-09-16 | XMS | Encounter Summary ---
Demographics + + + | Address | [address] | | | [place] [address] | + + + | Home Phone | | + + + | Preferred Language | Unknown | + + + | Marital Status | | + + + | Hoahaoism Affiliation | Unknown | + + + | Race | Unknown | + + + | Ethnic Group | Unknown | + + + Author + + + | Author | [facility] | | | and [place] | + + + | Organization | [facility] | | [...] Team Providers + +------+ + | Care Homicide Squad Captain Name | Role | Phone | + +------+ + | Renaldo Calzada MD | PCP | | + +------+ + Reason for Visit +--------+ + | Reason | Comments | +--------+ + | Other | 14 day event monitor | +--------+ + Service/Procedure (Routine) +--------+--------+ + + + + | Status | Reason | Specialty | Diagnoses / | Referred By | Referred To | | | | | Procedures | Contact | Contact | +--------+--------+ + + + + | Closed | | Cardiology | Diagnoses | Sally, | Talha | | | | | | DO Esthela | Cardiology | | | | | Palpitations | [address] | [place] | | | | | Procedures | [address] | [address] | | | | | [address] | [address] | | | | | MONITOR [address] | [place], [place] | [place], [place] | | | | | WEEK 2 WK | [address] | [address] | | | | | | Phone: | Phone: | | | | | | [phone] | [phone] | | | | | | Fax: | Fax: | | | | | | [phone] | [phone] | +--------+--------+ + + + + Encounter Details +--------+ + + + + | Date | Type | Department | Care Team | Description | +--------+ + + + + | 07/01/ | Procedure | [facility] | Esthela Zavala DO | Heart palpitations | | 2020 | visit | CARDIOLOGY [place] | [address] | | | | | [address] | [place], [place] | | | | | [address] [place], [place] | [address] | | | | | [address] | | | | | | [phone] | | | +--------+ + + + [...] documented as of this encounter Progress Notes Estela Thomas CMA - 07/02/2019 3:30 PM PDT14 day cardiac event monitor placed on patie nt. EOB/Billing information discussed. Instructions given and understood.Electronically sign ed by Estela Thomas CMA at 07/02/2019 2:34 PM PDTdocumented in this encounter Plan of Treatment Not on filedocumented as of this encounter Visit Diagnoses + + | Diagnosis | + + | Heart palpitations Palpitations | + + documented in this encounter"
--- OUTSIDE RECORDS SUMMARY | ~2019-09-16 | XMS | Encounter Summary ---
Demographics + + + | Address | [address] | | | [place] [address] | + + + | Home Phone | | + + + | Preferred Language | Unknown | + + + | Marital Status | | + + + | Denominational Affiliation | Unknown | + + + | Race | Unknown | + + + | Ethnic Group | Unknown | + + + Author + + + | Author | [facility] | | | and [place] | + + + | Organization | [facility] | | | [...] Team Providers + +------+ + | Care Terra Cotta Setter Name | Role | Phone | + +------+ + PCP | Unavailable | + +------+ + Encounter Details +--------+ + + + + | Date | Type | Department | Care Team | Description | +--------+ + + + + | 05/27/ | Orders Only | [facility] | Renaldo Calzada V, | | | 2019 | | CONVERSION [address] | [address] | | | | | [place] | [place] | | | | | [facility] [place] | [address] | | | | | [address] | | | | | | [phone] | | | +--------+ + + + [...] | | | Doppler was perfomed at [facility]. Study: This was a technically adequate | [...] | | | 0.63 m/s MV Dec Zapata: 2.36 m/s2 MV DecT: 288.62 ms MV E | | | Abdiel: 0.68 m/s MV E/A Ratio: 1.06 E/E' Sept: 9.14 E' Lat: | | | 0.10 m/s E' Sept: 0.07 m/s RAP: 5 mmHg RVSP: 21.17 mmHg | | | TR maxP.17 mmHg TR Vmax: 2.01 m/s Demonstrator Sales: | | | Authenticated by: BENJAMIN GARCIA MD Report Date/Time: -- | | | [id number]:20 | | + + + + + [...] flow Doppler | | was perfomed at [facility].Study: This was a technically adequate study.Left Ventricle: [...] (A-L): 22.44 ml/m2LAAs A2C: | | 17.45 [id number] A-L A2C: 48.14 mlLAESV MOD A2C: 47.91 mlLALs A2C: 5.37 cmLAAs A4C: | | 17.93 [id number] A-L A4C: 51.89 mlLAESV MOD A4C: 49.54 mlLALs A4C: 5.26 cmRAAs: | | 14.68 [id number] A-L: 40.32 mlRAESV MOD: 39.64 mlRALs: 4.53 cmTAPSE: 2.10 cmAV | | Env.Ti: 231.76 msAV maxP.89 mmHgAV meanP.40 mmHgAV Vmax: 1.21 m/Margarita | | Vmean: 0.88 m/Margarita VTI: 20.42 cmAVA Vmax: 3.96 cm2AVA (VTI): 4.48 [id number] Vmax: | | 0.00 cm2/m2AVAI (VTI): 0.00 cm2/m2LVOT Env.Ti: 248.72 msLVOT maxP.35 mmHgLVOT | | meanP.43 mmHgLVSI Dopp: 40.73 ml/m2LVSV Dopp: 91.66 mlLVOT Vmax: 1.15 | | m/sLVOT Vmean: 0.88 m/sLVOT VTI: 22.03 cmMV A Abdiel: 0.63 m/sMV Dec Zapata: 2.36 | | m/s2MV DecT: 288.62 msMV E Abdiel: 0.68 m/sMV E/A Ratio: 1.06E/E' Sept: 9.14E' Lat: | | 0.10 m/sE' Sept: 0.07 m/sRAP: 5 mmHgRVSP: 21.17 mmHgTR maxP.17 mmHgTR | | Vmax: 2.01 m/s Demonstrator Sales:Authenticated by: BENJAMIN JOSE, MDReport Date/Time: -- | | [id number]:14:20 IMPRESSION: 1. Overall left ventricular systolic function [...] A Abdiel: 0.63 m/s | |MV Dec Zapata: 2.36 m/s2 | |MV DecT: 288.62 ms | |MV E Abdiel: 0.68 m/s | |MV E/A Ratio: 1.06 | |E/E' Sept: 9.14 | |E' Lat: 0.10 m/s | |E' Sept: 0.07 m/s | |RAP: 5 mmHg | |RVSP: 21.17 mmHg | |TR maxP.17 mmHg | |TR Vmax: 2.01 m/s | | | |Demonstrator Sales: | |Authenticated by: BENJAMIN GARCIA MD | |Report Date/Time: -- [id number]:14:20 | | | |IMPRESSION: | |1. Overall [...]
--- OUTSIDE RECORDS SUMMARY | ~2019-09-16 | XMS | Clinical Summary ---
Demographics + + + | Address | [address] | | | [place] [address] | + + + | Home Phone | | + + + | Preferred Language | Unknown | + + + | Marital Status | | + + + | Druze Affiliation | Unknown | + + + | Race | Unknown | + + + | Ethnic Group | Unknown | + + + Author + + + | Author | [facility] | | | and [place] | + + + | Organization | [facility] | | [...] Team Providers + +------+ + | Care Heating Unit Mechanic Name | Role | Phone | + [...] +-------+--------+ +--------+-------+---------+------+ | BCBS | BCBS | [id number] | | | | PPO | | [...] | | al/Fam | | 1961 | [phone] | [place], [place] | | | [place] | | | [address] ([place]) | [address] | + +--------+ +--------+ + + Advance Directives + + + + + | Type | Date Recorded | Patient | Explanation | | | | Casino Attendant | | + + + + + | Power of | | | | | Mercerizer Machine Operator | | | | + + + + + | Advance | | | | | Directive | | | | + + + + +
--- OUTSIDE RECORDS SUMMARY | ~2019-09-16 | XMS | Encounter Summary ---
Demographics + + + | Address | [address] | | | [place] [address] | + + + | Home Phone | | + + + | Preferred Language | Unknown | + + + | Marital Status | | + + + | Protestant Affiliation | Unknown | + + + | Race | Unknown | + + + | Ethnic Group | Unknown | + + + Author + + + | Author | [facility] | | | and [place] | + + + | Organization | [facility] | | [...] Team Providers + +------+ + | Care Medical Claims Specialist Name | Role | Phone | + [...] + + | 07/29/ | Virtual | [facility] | Esthela Zavala DO | Palpitations | | 2019 | Office | CARDIOLOGY [place] | [address] | (Primary Dx) | | | Visit | [address] | [place], [place] | | | | | [address] [place], [place] | [address] | | | | | [address] | | | | | | [phone] | | | +--------+ + + + [...] a secure 256-bit AES encrypted bidirectional video [employer]. Service was provided [id number] with the patient via interactive videoconferencing Video start time 11:50 Video end time 12:05 Total time (in minutes) including non [id number] time (reviewing records, documentation, etc.) 15-24 minutes ([id number]) You have chosen to receive care through the use of telemedicine. Telemedicine enables [facility] care providers at different locations to provide [...] DO is licensed. No follow-ups on file. [facility] Cardiology Cardiology Follow Up Note Reason [...] abdomen, I kareem torres requested this from [facility]. He has no new complaints today. Review [...] file Gets together: Not on file Attends yarsanism service: Not on file Active member of [...]
--- OUTSIDE RECORDS SUMMARY | ~2019-09-16 | XMS | Encounter Summary ---
Demographics + + + | Address | [address] | | | [place] [address] | + + + | Home Phone | | + + + | Preferred Language | Unknown | + + + | Marital Status | | + + + | Latter Day Affiliation | Unknown | + + + | Race | Unknown | + + + | Ethnic Group | Unknown | + + + Author + + + | Author | [facility] | | | and [place] | + + + | Organization | [facility] | | [...] Team Providers + +------+ + | Care Side Panel Padder Name | Role | Phone | + [...] + + | 07/01/ | Documentati | [facility] | Jaki Wilson, | Other (end of study) | | 2019 | on | CARDIOLOGY JUNIOR | Technologist | | | | | [address] | | | | | | [place] | | | | | | [address] | | | | | | [phone] | | | +--------+ + + + [...] documented as of this encounter Progress Notes Jaki Wilson, Technologist - 07/02/2019 11:59 PM PDT [...]
--- OUTSIDE RECORDS SUMMARY | ~2019-09-16 | XMS | Encounter Summary ---
Demographics + + + | Address | [address] | | | [place] [address] | + + + | Home Phone | | + + + | Preferred Language | Unknown | + + + | Marital Status | | + + + | Christian Affiliation | Unknown | + + + | Race | Unknown | + + + | Ethnic Group | Unknown | + + + Author + + + | Author | [facility] | | | and [place] | + + + | Organization | [facility] | | | [...] Team Providers + +------+ + | Care Detailer Name | Role | Phone | + [...] | | | Palpitations | [address] [place] | | | | | Procedures | [address] | [address] | | | | | [address] | [address] | | | | | MONIT[address] | [place], [place] | [place], [place] | | | | | WEEK [address] WK | [address] | [address] | | | | | | Phone: | Phone: | | | | | | [phone] | [phone] | | | | | | Fax: | Fax: | | | | | | [phone] | [phone] | +--------+--------+ + + + + Encounter Details +--------+ + + + + | Date | Type | Department | Care Team | Description | +--------+ + + + + | 07/01/ | Procedure | [facility] | Esthela Zavala DO | Heart palpitations | | 2020 | visit | [facility] [place] | [address] | | | | | [address] | [place], [place] | | | | | [address] [place], [place] | [address] | | | | | [address] | | | | | | [phone] | | | +--------+ + + + [...]
[~2019-09-16 16:15] MED LIST changes: +ALLOPURINOL100 MG PO; +AMLODIPINE BESY10 MG PO; +CALCIUM CARBON200 MG PO; +LISINOPRIL40 MG PO; +METFORMIN HCL1000 MG PO; +PERCOCET 7.5-31 EACH PO; +TYLENOL EXTRA500 MG PO
--- OUTSIDE RECORDS SUMMARY | 2019-09-16 16:18 | XMS ---
PreManage Notification: SOHA THOMAS Security Leave Coordinator Events No recent Security Events currently on file CRITERIA MET - [facility] - 2 Visits in 30 Days CARE PROVIDERS There are no care providers on record at this time. Kendrick has no Care Guidelines for this patient. Kris VISIT COUNT (12 MO.) [facility] TOTAL 2 NOTE: Visits indicate total known visits. ED/C VISIT TRACKING (12 MO.) 09/16/2019 16:16 [facility] [place] TYPE: Emergency COMPLAINT: - HANDS NUMB, L ARM SPASM, L SIDE FACE NUMB 08/24/2019 15:26 [facility] [place] TYPE: Emergency COMPLAINT: - POST OP PROBLEM, RAPID HEART RATE DIAGNOSES: - Hypomagnesemia - Paresthesia of skin - Palpitations - Allergy status to narcotic agent status - Type 2 diabetes mellitus without complications - Personal history of nicotine dependence - Other adjunct faculty for medical terminology (current) drug therapy - Essential (primary) hypertension INPATIENT VISIT TRACKING (12 MO.) 08/21/2019 13:01 [facility] [place] TYPE: Observation COMPLAINT: - PARATHYROIDECTOMY W/[facility] DIAGNOSES: - Benign neoplasm of parathyroid gland - jail (current) use of inhaled steroids - Major depressive disorder, single episode, unspecified - Other adjunct faculty for medical terminology (current) drug therapy - Disorder of parathyroid gland, unspecified - Body mass index (BMI) 38.0-38.9, adult - Hyperparathyroidism, unspecified - jail (current) use of oral hypoglycemic drugs - Essential (primary) hypertension - Type 2 diabetes mellitus without complications - Morbid (severe) obesity due to excess calories - Unspecified asthma, uncomplicated - Allergy status to narcotic agent status - Gastro-esophageal reflux disease without esophagitis - Personal history of nicotine dependence [email or web address]
[2019-09-16] MEDS ORDERED: MAGNESIUM400 M1 PO (16:31)
== END 2019-09-16 19:05 | disposition home or self-care (01) ==
LOC: ED 16:15
DX: R20.2 Paresthesia of skin (principal); E11.65 Type 2 diabetes mellitus with hyperglycemia; I10 Essential (primary) hypertension; Z88.5 Allergy status to narcotic agent; Z79.899 Other long term (current) drug therapy
CPT/HCPCS: 80053; 83735; 85025; 99284

== ENCOUNTER 2021-07-27 14:13 | Emergency (ER) | payer BC ==
[~2021-07-27] VITALS: Ht 172.7 cm; Wt 119.3 kg
[~2021-07-27 14:13] MED LIST changes: +MAGNESIUM400 M1 PO
[2021-07-27] MEDS ORDERED: LANTUS SOL100 UNIT/1 SUB-Q (14:35)
[2021-07-27] MEDS ORDERED: HUMALOG100 UNITS/ SUB-Q (14:37)
--- NOTE | 2021-07-27 18:25 | EKG ---
[facility] [address] [place] [address] Signed Normal sinus rhythm Incomplete right bundle branch block Borderline ECG When compared with ECG of 24-AUG-2019 15:30, Incomplete right bundle branch block is now present Confirmed by AMIE ANDINO MD ([id number]) on 07/27/2021 6:25:09 PM Electronically Signed By: AMIE ANDINO MD 07/27/21 1825 PATIENT NAME: MARTHASOHA Electrocardiogram DATE OF : 64 PHYSICIAN: AMIE ANDINO MD REPORT #: [id number] REPORT IS CONFIDENTIAL AND NOT TO BE RELEASED WITHOUT AUTHORIZATION
[2021-07-27] MEDS ORDERED: MAGNESIUM200 MG PO (18:54)
== END 2021-07-27 19:15 | disposition home or self-care (01) ==
LOC: ED 14:13
DX: R55 Syncope and collapse (principal); E83.42 Hypomagnesemia; I10 Essential (primary) hypertension; E11.9 Type 2 diabetes mellitus without complications; Z88.5 Allergy status to narcotic agent; Z79.899 Other long term (current) drug therapy; Z79.4 Long term (current) use of insulin
CPT/HCPCS: 36415; 70496; 70498; 80053; 83735; 84443; 84484; 85025; 85379; 93005; 93010; 99284-25; J3475; Q9967